=== PATIENT | female | born 1980 | race Caucasian/White ===

== ENCOUNTER 2016-11-02 05:45 | Day surgery (SDC) | payer OTHER ==
[2016-10-30 10:21] LABS: ASPARTATE AMINO TRANSFERASE 12 U/L (15-37); BLOOD UREA NITROGEN 15 mg/dL (7-18)
[~2016-11-02] VITALS: Ht 157.5 cm; Wt 100.8 kg
[~2016-11-02 05:45] MED LIST: CETI10TA24 PO; ESOM40CA PO; FLUT10.6 INH; LEVO50TA5 PO; MELA10TA PO; TOPI100T24 PO
[2016-11-02 06:36] VITALS: BP 128/84
[2016-11-02] MEDS ORDERED: LACTATED RINGERS 1,000 ML IV SCH (06:39)
[2016-11-02] MEDS ORDERED: FLUORESCEIN SODIUM 500 MG/5 ML ONE (07:16)
[2016-11-02] MEDS ORDERED: BUPIVACAINE/PF 0.25% ONE (07:17)
[2016-11-02] MEDS ORDERED: HYDROmorphone 2 MG/ML, 1ML ONE (07:29)
[2016-11-02] MEDS ORDERED: FENTANYL PF 250 MCG/5ML ONE (07:29)
[2016-11-02] MEDS ORDERED: GLYCOPYRROLATE 0.2MG/1ML ONE (07:38)
[2016-11-02] MEDS ORDERED: KETOROLAC 30 MG/1 ML ONE (07:38)
[2016-11-02] MEDS ORDERED: ROCURONIUM 10 MG/ML ONE (07:38)
[2016-11-02] MEDS ORDERED: METOCLOPRAMIDE 5 MG/ML, 2ML ONE (07:38)
[2016-11-02] MEDS ORDERED: PROPOFOL 10 MG/ML, 20ML ONE (07:38)
[2016-11-02] MEDS ORDERED: ONDANSETRON 2MG/ML, 2ML ONE ×2 (07:38→11:07)
[2016-11-02] MEDS ORDERED: CEFAZOLIN 1,000 MG ONE (07:38)
[2016-11-02] MEDS ORDERED: NEOSTIGMINE 1 MG/ML, 10ML ONE (07:38)
[2016-11-02] MEDS ORDERED: SUCCINYLCHOLINE 20 MG/ML, 10ML ONE (07:38)
[2016-11-02] MEDS ORDERED: DEXAMETHASONE 4 MG/ML, 5ML ONE (07:38)
[2016-11-02] MEDS ORDERED: LABETALOL 5MG/ML, 20ML IV PRN (08:30)
[2016-11-02] MEDS ORDERED: MIDAZOLAM 1 MG/ML, 2ML IV PRN (08:30)
[2016-11-02] MEDS ORDERED: hydrALAzine 20 MG/ML, 1ML IV PRN (08:30)
[2016-11-02] MEDS ORDERED: PROMETHAZINE 25 MG/ML, 1ML IV PRN (08:30)
[2016-11-02] MEDS ORDERED: OXYcodone 5 MG/5 ML ORAL.SOL UDC PO PRN (08:30)
[2016-11-02] MEDS ORDERED: ONDANSETRON 2MG/ML, 2ML IVPush PRN (08:30)
[2016-11-02] MEDS ORDERED: HYDROmorphone 1 MG/ML, 1ML IV PRN (08:30)
[2016-11-02] MEDS ORDERED: MEPERIDINE/PF 25MG/0.5ML IVPush PRN (08:30)
[2016-11-02] MEDS ORDERED: FENTANYL PF 100 MCG/2ML ONE (09:29)
[2016-11-02] MEDS: FENTANYL PF 100 MCG/2ML IV PRN ×2 (09:30→09:40)
[2016-11-02] MEDS ORDERED: HYDROmorphone 1 MG/ML, 1ML ONE (09:57)
[2016-11-02] MEDS ORDERED: SCOPOLAMINE PATCH, 1.5MG PATCH.TD72 TD ONE ×2 (11:05→11:30)
[2016-11-02] MEDS ORDERED: OXYcodone/APAP 5/325MG TABLET ONE (11:18)
[2016-11-02] MEDS: OXYcodone/APAP 5/325MG TABLET PO PRN ×2 (11:23→15:04)
[2016-11-02] MEDS ORDERED: PROMETHAZINE 25 MG SUPP PR PRN (11:30)
[2016-11-02] MEDS ORDERED: morphine SULFATE 10 MG/ML, 1ML IVPush PRN (11:30)
[2016-11-02] MEDS ORDERED: ACETAMINOPHEN 325 MG TABLET PO PRN (11:30)
[2016-11-02] MEDS ORDERED: HYDROmorphone 2 MG/ML, 1ML IVPush PRN (11:30)
[2016-11-02] MEDS ORDERED: ZOLPIDEM 5MG TABLET PO PRN (11:30)
[2016-11-02] MEDS ORDERED: SENNA/DOCUSATE TABLET PO SCH (11:30)
[2016-11-02] MEDS ORDERED: ONDANSETRON 2MG/ML, 2ML IVPush ONE (11:30)
[2016-11-02] MEDS ORDERED: BISACODYL 10 MG SUPP PR PRN (11:30)
[2016-11-02] MEDS ORDERED: ACETAMINOPHEN 650 MG SUPP PR PRN (11:30)
[2016-11-02 13:08] LABS: HEMATOCRIT 37.5 % (34.6-47.8); HEMOGLOBIN 12.5 g/dL (11.7-16.4); WHITE BLOOD COUNT 12.2 x10^3/uL (3.4-10)
[2016-11-02 13:18] LABS: BLOOD UREA NITROGEN 18 mg/dL (7-18)
[2016-11-02] MEDS ORDERED: IBUPROFEN 600 MG TABLET ONE (14:59)
[2016-11-02] MEDS ORDERED: SIMETHICONE 80 MG CHEW TAB PO SCH (16:00)
[2016-11-02] MEDS ORDERED: IBUPROFEN 600 MG TABLET PO SCH (16:00)
[2016-11-02] MEDS ORDERED: DOCUSATE 100 MG CAPSULE PO SCH (21:00)
== END 2016-11-02 15:20 ==
LOC: OUT 05:45
PROVIDERS: ATTEND Obstetrics & Gynecology
DX: N93.9 Abnormal uterine and vaginal bleeding, unspecified (principal); N39.3 Stress incontinence (female) (male); E03.9 Hypothyroidism, unspecified; E66.01 Morbid (severe) obesity due to excess calories; F32.9 Major depressive disorder, single episode, unspecified; Z68.41 Body mass index [BMI] 40.0-44.9, adult; J45.909 Unspecified asthma, uncomplicated; Z30.432 Encounter for removal of intrauterine contraceptive device; Z91.09 Other allergy status, other than to drugs and biological substances; Z90.49 Acquired absence of other specified parts of digestive tract
CPT/HCPCS: 36415; 58262; 80048; 80053; 84703; 85025; 86850; 86900; 88307; J0330; J0690; J1100; J1170; J1885; J2405; J2704; J2710; J2765; J3010; J3490; J7120